=== PATIENT | female | born 1975 | race African-American/Black ===

== ENCOUNTER 2018-01-04 00:51 | Emergency (ER) | payer MEDICAID ==
[~2018-01-04] VITALS: Ht 165.1 cm; Wt 104.5 kg
[2018-01-04 00:54] VITALS: Ht 165.1 cm; Wt 104.5 kg
[2018-01-04] MEDS ORDERED: CYCLOBENZAPRINE10 MG PO (04:32)
[2018-01-04] MEDS ORDERED: ACETAMINOPHEN500 M1 PO (04:32)
[2018-01-04] MEDS ORDERED: IBUPROFEN800 MG PO (04:32)
[2018-01-04 04:36] VITALS: BP 117/69
== END 2018-01-04 04:36 | disposition home or self-care (01) ==
LOC: D.ER 00:51
DX: M25.562 Pain in left knee (principal); M79.1 Myalgia; M54.2 Cervicalgia; V43.62XA Car passenger injured in collision with other type car in traffic accident, initial encounter; Y93.89 Activity, other specified; Y92.410 Unspecified street and highway as the place of occurrence of the external cause; F17.200 Nicotine dependence, unspecified, uncomplicated